=== PATIENT | female | born 1945 | race Caucasian/White ===

== ENCOUNTER → 2016-11-15 | Outpatient (CLI) | payer MEDICARE ==
--- NOTE | 2016-11-15 17:21 | US ---
EXAMINATION TYPE: US thyroid st tissue head/neck DATE OF EXAM: 11/15/2016 5:03 PM COMPARISON: NONE CLINICAL HISTORY: R94.6 abnormal thyroid results. GLAND SIZE: Right Lobe: 4.0 x 1.4 x 2.0 cm Overall Parenchyma: heterogenous Left Lobe: 4.3 x 1.3 x 2.0 cm Overall Parenchyma: heterogeneous Isthmus Thickness: 0.3 cm NODULES RIGHT: # of nodules measured on right: 0 LEFT: # of nodules measured on left: 0 ISTHMUS: # of nodules measured in the isthmus: 0 TECHNOLOGIST IMPRESSION: Multiple lymph nodes noted bilateral neck, largest on left = 2.1 x 0.6 x 1. 2cm. Heterogeneous thyroid gland with no distinct nodule noted IMPRESSION: No focal thyroid defect. There are a few cervical lymph nodes that probably normal.
== END | disposition home or self-care (01) ==
LOC: RADUSWWP 16:42
PROVIDERS: ATTEND Internal Medicine
DX: R94.6 Abnormal results of thyroid function studies (principal)
CPT/HCPCS: 76536

== ENCOUNTER → 2016-12-22 | Outpatient (CLI) | payer MEDICARE ==
--- NOTE | 2016-12-22 11:57 | FL ---
EXAMINATION TYPE: FL barium swallow DATE OF EXAM ORDERED: 12/22/2016 11:38 AM HISTORY: Dysphagia. COMPARISON: None. FINDINGS: The patient drank barium of these. There is tissue inflammation throughout the esophagus. This prominent posterior indentation upon upon the esophagus secondary to the cricopharyngeus muscle. The mucosal pattern throughout the esophagus was unremarkable. There is no evidence of hiatal hernia . There is moderate reflux. IMPRESSION: 1. PRESBYESOPHAGUS. 2. CRICOPHARYNGEAL ACHALASIA. 3. MODERATE REFLUX.
== END | disposition home or self-care (01) ==
LOC: RADFLWHC 10:56
PROVIDERS: ATTEND Otolaryngology
DX: K22.0 Achalasia of cardia (principal); K21.9 Gastro-esophageal reflux disease without esophagitis; K22.8 Other specified diseases of esophagus
CPT/HCPCS: 74220

== ENCOUNTER → 2017-01-01 | Outpatient (CLI) | payer MEDICARE ==
[2017-01-01 14:28] LABS: Non-African American GFR(MDRD) >60 (>60 ml/min/1.73 sqM)
--- NOTE | 2017-01-01 16:29 | MR ---
EXAMINATION TYPE: MR neck wo/w con DATE OF EXAM: 01/01/2017 3:33 PM COMPARISON: NONE HISTORY: Dysphagia, localized swelling mass CONTRAST: Performed utilizing 15 mL intravenous MultiHance gadolinium contrast. TECHNIQUE: Multiplanar, multiecho imaging on a 3.0 [place] magnet is performed through the neck. The cr aniovertebral junction is normal. The pituitary is normal. Findings: Subglottic airway appears unremarkable. There may be some subtle asymmetry of the vocal cord level wi th some flattening and midline shift of the left vocal cord compared to the right. Hypopharynx appear s unremarkable. No underlying vocal cord masses are identified on the pulse sequences. Paranasal sinuses within the [id number] are clear. Mastoid air cells are clear. Torus tubarius and fossa of Rosenmuller appear normal. Mental [facility] Program Specialist spaces are normal. Parotid glands are unremarkable. S ubmandibular glands are normal. No suspicious enlarged lymphadenopathy is evident. Scattered small ly mph nodes are within the bilateral neck chains. Postcontrast imaging appears unremarkable. Tongue appears normal. Mandible appears normal submental s pace is normal supraclavicular region is normal. IMPRESSIONS: 1. There may be some very subtle asymmetry of the vocal cord level slightly more medial placed left v ocal cord compared to the right. Underlying mass however is not identified. Direct visualization is r ecommended. 2. MRI of the neck appears otherwise unremarkable.
== END | disposition home or self-care (01) ==
LOC: RADMRIMAIN 13:35
PROVIDERS: ATTEND Otolaryngology
DX: R13.10 Dysphagia, unspecified (principal); R59.1 Generalized enlarged lymph nodes
CPT/HCPCS: 82565; 70543; 36415; A9577

== ENCOUNTER → 2017-01-18 | Outpatient (CLI) | payer MEDICARE | END | disposition home or self-care (01) | LOC: PTMAIN 12:50 | PROVIDERS: ATTEND Otolaryngology ==

== ENCOUNTER 2017-02-13 09:20 | Day surgery (SDC) | payer MEDICARE ==
[2017-02-09 13:46] VITALS: BMI 31.2
[~2017-02-13 09:20] MED LIST: LACTATED RINGERS 1,000 ML IV SCH
[2017-02-13 10:09] VITALS: TEMP 96.6
[2017-02-13] MEDS ORDERED: LIDOCAINE 1% INJ 10MG/ML (20 ML MDV) ONE (10:42)
[2017-02-13] MEDS ORDERED: PROPOFOL 10 MG/ML 20 ML VIAL IV ONE (10:42)
[2017-02-13 11:06] VITALS: BP 131/63; PULSE 88; RESP 16
--- NOTE | 2017-02-13 11:09 | P.PCN ---
Date of Procedure: 02/13/17 Preoperative Diagnosis: Postoperative Diagnosis: Procedure(s) Performed: Procedure: Esophagogastroduodenoscopy and biopsy. Preoperative diagnosis: Chronic gastroesophageal reflux and cough and more recent problems with progressive dysphagia. Postoperative diagnosis: 1. Small sliding hiatal hernia with no obvious esophagitis or complicated reflux disease. 2. Mild antral gastritis. Preparation and sedation: Was provided by anesthesia. Brief clinical history: The patient is a 71-year-old female who is referred for this evaluation because of chronic reflux symptoms. Had cough for at least the last 5 years. In addition, she has been having issues with dysphagia for the last 3 months that seems to be progressing. No alarm symptoms such as weight loss or bleeding. Procedure: With the patient on her left lateral decubitus position and after informed consent and adequate sedation, I passed the Olympus-GIF 160 video upper endoscope through the cricopharyngeus down the esophagus. GE junction was around 38 cm from the incisors and there was a small sliding hiatal hernia. The esophagus did not show any obvious erosions or ulcers. There were no strictures or Franco's esophagus. The endoscope was then passed into the stomach which was insufflated with air and inspected in detail including the retroflex view in the cardia. There was minimal mottling and erythema in the antrum but no ulcers or erosions. Pyloric channel, duodenal bulb, post bulbar area and descending duodenum appeared within normal limits. Because of her symptoms, I obtained biopsies from the duodenum, antrum and esophagus then the endoscope was withdrawn. No dilation was indicated. The patient tolerated the procedure well. Plan: The patient was reassured. Consideration can be given for further evaluation including evaluation for possible motility disorders, especially, if her symptoms persist or progress and if there is nutritional compromise. She will follow-up with you as planned and I'll keep you updated on her progress. Implants: Indications for Procedure: Operative Findings: Description of Procedure:
== END 2017-02-13 11:38 | disposition home or self-care (01) ==
LOC: ORWHC2ENDO 09:20
DX: R13.10 Dysphagia, unspecified (principal); K29.70 Gastritis, unspecified, without bleeding; K44.9 Diaphragmatic hernia without obstruction or gangrene; K21.9 Gastro-esophageal reflux disease without esophagitis; J44.9 Chronic obstructive pulmonary disease, unspecified; I10 Essential (primary) hypertension; Z88.3 Allergy status to other anti-infective agents; Z91.013 Allergy to seafood; Z79.82 Long term (current) use of aspirin; Z79.899 Other long term (current) drug therapy; R05 Cough
CPT/HCPCS: 88305; 88342; 43239; J2001; J2704

== ENCOUNTER → 2017-06-14 | Outpatient (CLI) | payer MEDICARE ==
--- NOTE | 2017-06-18 10:35 | MM ---
Reason for exam: screening (asymptomatic). Last mammogram was performed 1 year and 1 month ago. History: Patient is postmenopausal. Family history of breast cancer in paternal grandmother at age 67. Benign core biopsy of the right breast, 1980. Took hormonal contraceptives for 2 years beginning at age 21. Took estrogen for 3 months. Physical Findings: A clinical breast exam by your physician is recommended on an annual basis and results should be correlated with mammographic findings. MG Screening Mammo w CAD Bilateral CC and MLO view(s) were taken. Prior study comparison: May 05, 2016, bilateral MG 3d screening mammo w/cad. March 17, 2015, bilateral MG screening mammo w CAD. There are scattered fibroglandular densities. Stable benign calcifications. There is no discrete abnormality. No significant changes when compared with prior studies. ASSESSMENT: Benign, BI-RAD 2 RECOMMENDATION: Routine screening mammogram of both breasts in 1 year.
== END | disposition home or self-care (01) ==
LOC: RADMAMWWP 14:26
PROVIDERS: ATTEND Internal Medicine
DX: Z12.31 Encounter for screening mammogram for malignant neoplasm of breast (principal)

== ENCOUNTER → 2018-11-25 | Outpatient (CLI) | payer MEDICARE ==
--- NOTE | 2018-11-25 17:37 | BD ---
EXAMINATION TYPE: Axial Bone Density DATE OF EXAM: 11/25/2018 COMPARISON: 03/10/2014 CLINICAL HISTORY: 73-year-old female osteoporosis Height: 59.5 IN Weight: 162 LBS FRAX RISK QUESTIONS: Secondary Osteoporosis: 3. Menopause before 45: YES AGE 36 RISK FACTORS HISTORY OF: History of Wrist Fracture: YES ADAL When: AGE 63 Active: YES Postmenopausal woman: YES AGE 36 Take estrogen and/or progesterone medications: NOT NOW How long: TOOK CONTROL FOR 2 YEARS Lost more than 2 inches in height since high school: YES 09/11" MEDICATIONS: Additional Medications: VIT D, COUGH MED WITH HYDROCODONE, HEART MED, BLOOD PRESSURE MEDS, ASTHMA MED EXAM MEASUREMENTS: Bone mineral densitometry was performed using the [employer] System. Bone mineral density as measured about the Lumbar spine is: ----- L1-L4(G/cm2): 0.849 T Score Values are as follows: ----- L2: -3.3 ----- L3: -2.3 ----- L4: -3.0 ----- L1-L4: -2.8 Bone mineral density has: INCREASED 3.2% since study of: 03/10/1914 Bone mineral density about the R hip (g/cm2): 0.661 Bone mineral density about the L hip (g/cm2): 0.594 T Score values are as follows: -----R Neck: -2.7 -----L Neck: -3.2 -----R Total: -2.3 -----L Total: -2.3 Bone mineral density has: INCREASED 0.6% since study of: 03/10/2014 IMPRESSION: Osteoporosis (T Score less than -2.5). There is increased fracture risk and therapy is usually indicated based on age. Re-Screen 1-2 years. NOTE: T-SCORE=SD OF THE YOUNG ADULT MEAN.
--- NOTE | 2018-11-26 14:04 | MM ---
Reason for exam: screening (asymptomatic). Last mammogram was performed 1 year and 5 months ago. History: Patient is postmenopausal. Family history of breast cancer in paternal grandmother at age 67. Benign core biopsy of the right breast, 1980. Took hormonal contraceptives for 2 years beginning at age 21. Took estrogen for 3 months. Physical Findings: A clinical breast exam by your physician is recommended on an annual basis and results should be correlated with mammographic findings. MG 3D Screening Mammo W/Cad Bilateral CC and MLO view(s) were taken. Prior study comparison: June 14, 2017, bilateral MG screening mammo w CAD. May 05, 2016, bilateral MG 3d screening mammo w/cad. No significant changes when compared with prior studies. ASSESSMENT: Negative, BI-RAD 1 RECOMMENDATION: Routine screening mammogram of both breasts in 1 year.
== END | disposition home or self-care (01) ==
LOC: RADMAMWWP 15:31
PROVIDERS: ATTEND Internal Medicine
DX: M81.0 Age-related osteoporosis without current pathological fracture (principal)
CPT/HCPCS: 77063; 77067; 77080

== ENCOUNTER → 2019-02-20 | Outpatient (CLI) | payer MEDICARE ==
[~2019-02-20] MED LIST changes: +DENOSUMAB 60 MG/ML 1 ML SYRINGE SQ NR; +DENOSUMAB 60 MG/ML 1 ML SYRINGE SQ ONE; -LACTATED RINGERS 1,000 ML IV SCH
[2019-02-20 13:59] VITALS: BP 123/62; PULSE 81; RESP 16; TEMP 97.8
== END | disposition home or self-care (01) ==
LOC: PROCWHC3 13:33
PROVIDERS: ATTEND Internal Medicine
DX: M81.0 Age-related osteoporosis without current pathological fracture (principal)
CPT/HCPCS: 96372

== ENCOUNTER → 2019-08-26 | Outpatient (CLI) | payer MEDICARE ==
--- NOTE | 2019-08-26 14:46 | XR ---
EXAMINATION TYPE: XR ankle complete RT DATE OF EXAM: 08/26/2019 CLINICAL HISTORY: Right ankle pain after fall in July. TECHNIQUE: Frontal, lateral and oblique images of the right ankle are obtained. COMPARISON: None. FINDINGS: There is no acute fracture/dislocation evident in the right ankle. The ankle mortise appe ars within normal limits. Very small Achilles and plantar enthesophytes. The overlying soft tissue a ppears unremarkable. IMPRESSION: There is no acute fracture or dislocation in the right ankle.
--- NOTE | 2019-08-26 15:01 | XR ---
Right hip HISTORY: Trauma several weeks prior, pain in right hip 2 views of the right hip correlated to pelvis dated 11/15/2010 Bone mineralization is mildly reduced. Joint spaces and alignment are maintained. IMPRESSION: No fracture or dislocation.
== END | disposition home or self-care (01) ==
LOC: RADXRMAIN 14:13
PROVIDERS: ATTEND Internal Medicine
DX: M25.551 Pain in right hip (principal); M25.571 Pain in right ankle and joints of right foot
CPT/HCPCS: 73502

== ENCOUNTER → 2020-08-23 | Outpatient (CLI) | payer MEDICARE ==
[~2020-08-23] MED LIST changes: -DENOSUMAB 60 MG/ML 1 ML SYRINGE SQ NR
[2020-08-23 14:08] VITALS: BP 156/79; PULSE 63; RESP 16; TEMP 98.2
== END | disposition home or self-care (01) ==
LOC: PROCWHC3 13:48
PROVIDERS: ATTEND Internal Medicine
DX: M81.0 Age-related osteoporosis without current pathological fracture (principal)
CPT/HCPCS: 96372; J0897

== ENCOUNTER → 2020-10-18 | Outpatient (CLI) | payer MEDICARE ==
--- NOTE | 2020-10-18 15:22 | XR ---
EXAMINATION TYPE: XR chest 2V DATE OF EXAM: 10/18/2020 COMPARISON: 10/29/2013 HISTORY: Shortness of breath TECHNIQUE: Frontal and lateral views of the chest are obtained. FINDINGS: Scattered senescent parenchymal changes noted. Hyperinflation compatible with COPD. Strandy basilar densities may reflect parenchymal scar, atelectasis or developing infiltrate. Correla te clinically. Heart size is stable. Mediastinal structures are stable and grossly unremarkable. No evidence for hilar prominence. Degenerative changes dorsal spine. IMPRESSION: 1. Strandy basilar densities may reflect parenchymal scar, atelectasis or developing infiltrate. Kendall elate clinically.
== END | disposition home or self-care (01) ==
LOC: RADXRMAIN 13:58
PROVIDERS: ATTEND Internal Medicine
DX: J98.4 Other disorders of lung (principal)
CPT/HCPCS: 71046

== ENCOUNTER → 2020-12-30 | Outpatient (CLI) | payer MEDICARE ==
--- NOTE | 2021-01-03 10:37 | MM ---
Reason for exam: screening (asymptomatic). Last mammogram was performed 2 years and 1 month ago. History: Patient is postmenopausal. Family history of breast cancer in paternal grandmother at age 67. Benign core biopsy of the right breast, 1980. Took hormonal contraceptives for 2 years beginning at age 21. Took estrogen for 3 months. Physical Findings: A clinical breast exam by your physician is recommended on an annual basis and results should be correlated with mammographic findings. MG 3D Screening Mammo W/Cad Bilateral CC and MLO view(s) were taken. Prior study comparison: November 25, 2018, bilateral MG 3d screening mammo w/cad. June 14, 2017, bilateral MG screening mammo w CAD. There are scattered fibroglandular densities. Areas of asymmetric density are unchanged. No significant changes when compared with prior studies. ASSESSMENT: Negative, BI-RAD 1 RECOMMENDATION: Routine screening mammogram of both breasts in 1 year.
== END | disposition home or self-care (01) ==
LOC: RADMAMWWP 14:57
PROVIDERS: ATTEND Internal Medicine
DX: Z12.31 Encounter for screening mammogram for malignant neoplasm of breast (principal)
CPT/HCPCS: 77063; 77067

== ENCOUNTER 2022-01-23 13:57 | Emergency (ER) | payer MEDICARE ==
[2022-01-23 15:23] VITALS: TEMP 97.9
--- NOTE | 2022-01-23 15:45 | XR ---
EXAMINATION TYPE: XR wrist complete RT DATE OF EXAM: 01/23/2022 CLINICAL HISTORY: Recent fall injury with pain TECHNIQUE: Frontal, lateral and oblique images of the right wrist are obtained. 4 view scaphoid vie w is performed. COMPARISON: None FINDINGS: There is no acute fracture/dislocation evident in the right wrist. Advanced degenerative c hanges base of first metacarpal with marked narrowing and subchondral cystic change along with periph eral bony formation is present. The overlying soft tissue appears unremarkable. IMPRESSION: There is no acute fracture or dislocation in the right wrist.
[2022-01-23] MEDS ORDERED: ACETAMINOPHEN TAB 325 MG TAB PO STA (17:13)
--- NOTE | 2022-01-23 17:14 | ED ---
General Adult HPI - General Chief complaint: Extremity Injury, Upper Stated complaint: Fall, Right Wrist Injury Time Seen by Provider: 01/23/22 16:47 Source: patient Mode of arrival: ambulatory Limitations: no limitations - History of Present Illness Initial comments: Patient is a 76-year-old female presenting with chief complaint of right wrist pain. Patient states on Sunday she fell onto an outstretched hand after losing her balance on uneven ground. She did not hit her head and denies the use of blood thinners. She has been taking Tylenol for pain control. States that she has broken the right wrist on 2 previous occasions. She states that it has become increasingly painful and swollen. She denies any weakness, loss of range of motion, numbness, tingling warmth, fever, chills, chest pain, shortness of breath, nausea, vomiting, head injury. - Related Data Home Medications Medication Instructions Recorded Confirmed Aspirin 81 mg PO DAILY 06/07/15 08/23/20 Budesonide-Formot 160-4.5 Mcg 1 puff INHALATION BID 06/07/15 08/23/20 [Symbicort 160-4.5 Mcg Inhaler] Fluticasone Nasal [place] [Flonase 1 spray EA NOSTRIL BID 06/07/15 08/23/20 Nasal [place]] Hydrocodone/Chlorphen P-Stirex 5 ml PO Q12HR 06/07/15 08/23/20 [Hydrocodone-Chlorphen ER Susp] Loratadine [Claritin] 5 mg PO DAILY 06/07/15 08/23/20 Montelukast [Singulair] 10 mg PO HS 06/07/15 08/23/20 Multivitamins, Thera [Theragran] 1 each PO DAILY 06/07/15 08/23/20 amLODIPine [Norvasc] 5 mg PO DAILY 06/07/15 08/23/20 Allergies Allergy/AdvReac Type Severity Reaction Status Date / Time iodine Allergy burning Verified 01/23/22 15:21 sensation shellfish derived [Shellfish] Allergy Vomiting Verified 01/23/22 15:21 Review of Systems ROS Statement: Those systems with pertinent positive or pertinent negative responses have been documented in the HPI. ROS Other: All systems not noted in ROS Statement are negative. Past Medical History Past Medical History: Blood Disorder, COPD, GERD/Reflux, Hypertension, Osteoarthritis (OA) Additional Past Medical History / Comment(s): Diff swallowing, hiatal hernia, hx bowel obstruction("they can't get scope all the way up with colonoscopy") Dx. with thalassemia when 21 and was hospitalized for pneumonia, Hx. of SOB, Hx. of blood clots in both arms. History of Any Multi-Drug Resistant Organisms: None Reported Past Surgical History: Appendectomy, Bowel Resection, Cholecystectomy, Hysterectomy Additional Past Surgical History / Comment(s): Had a trach for pneumonia at age 21. Past Anesthesia/Blood Transfusion Reactions: No Reported Reaction Additional Past Anesthesia/Blood Transfusion Reaction / Comment(s): "i get very angry after" Past Psychological History: No Psychological Hx Reported Smoking Status: Former smoker - Past Family History Father Family Medical History: Blood Disorder Additional Family Medical History / Comment(s): thalassemia Brother(s) Family Medical History: Cancer Mother Family Medical History: Cancer Sister(s) Family Medical History: Blood Disorder Additional Family Medical History / Comment(s): thalassemia General Exam Limitations: no limitations General appearance: alert, in no apparent distress Head exam: Present: atraumatic, normocephalic, normal inspection Eye exam: Present: normal appearance, EOMI. Absent: scleral icterus Neck exam: Present: normal inspection Respiratory exam: Present: normal lung sounds bilaterally. Absent: respiratory distress, wheezes, rales, rhonchi, stridor Cardiovascular Exam: Present: regular rate, normal rhythm, normal heart sounds. Absent: systolic murmur, diastolic murmur, rubs, gallop, clicks Right Hand Wrist exam: Present: full ROM, tenderness, swelling Neurological exam: Present: alert, oriented X3, CN II-XII intact Psychiatric exam: Present: normal affect, normal mood Skin exam: Present: warm, dry, intact, normal color. Absent: rash Course Vital Signs 01/23/22 01/23/22 15:21 17:32 Temperature 97.9 F Pulse Rate 59 L 75 Respiratory 16 18 Rate Blood Pressure 121/90 125/79 O2 Sat by Pulse 96 99 Oximetry Medical Decision Making - Medical Decision Making Patient is a 76-year-old female presenting with chief complaint of right wrist pain. Pain began on Sunday after falling onto an outstretched hand. Patient states that she has broken the wrist 2 times before. On examination there is full range of motion. There is some swelling near the distal ulnar aspect and tenderness on palpation. X-ray shows no acute fracture or dislocation. Educated the patient on the findings, she appears stable for discharge with ou tpatient follow-up at this time. Educated on supportive treatment with acetaminophen and icing. Follow-up with your PCP this week. Report back to ER if any worsening symptoms. Educated on return parameters alarm symptoms. Answered all questions. Patient conveyed verbal understanding and agreed to the plan. Disposition Clinical Impression: Wrist pain Disposition: HOME SELF-CARE Condition: Good Instructions (If sedation given, give patient instructions): Wrist Injury (ED) Additional Instructions: Utilize Tylenol and ice as needed for pain control. Follow-up with your PCP this week. Report back to ER if any worsening symptoms. Is patient prescribed a controlled substance at d/c from ED?: No Referrals: Prasanth Gallardo MD [Primary Care Provider] - 1-2 days Time of Disposition: 17:13
[2022-01-23 17:33] VITALS: BP 125/79; PULSE 75; RESP 18
== END 2022-01-23 17:33 | disposition home or self-care (01) ==
LOC: EC 13:57
DX: M25.531 Pain in right wrist (principal); I10 Essential (primary) hypertension; M19.90 Unspecified osteoarthritis, unspecified site; Z87.891 Personal history of nicotine dependence; Z91.013 Allergy to seafood; Z88.8 Allergy status to other drugs, medicaments and biological substances; Z79.899 Other long term (current) drug therapy; Z79.82 Long term (current) use of aspirin; W19.XXXA Unspecified fall, initial encounter
CPT/HCPCS: 99283

== ENCOUNTER → 2022-05-26 | Outpatient (CLI) | payer MEDICARE ==
[~2022-05-26] MED LIST changes: +DENOSUMAB 60 MG/ML 1 ML SYRINGE SQ NR; -DENOSUMAB 60 MG/ML 1 ML SYRINGE SQ ONE
[2022-05-26 12:42] VITALS: BP 127/74; PULSE 66; RESP 16; TEMP 98.4
== END ==
LOC: PROCWHC3 12:22
PROVIDERS: ATTEND Internal Medicine
DX: M81.0 Age-related osteoporosis without current pathological fracture (principal); Z91.041 Radiographic dye allergy status; Z91.013 Allergy to seafood; Z87.891 Personal history of nicotine dependence
CPT/HCPCS: 96372; J0897

== ENCOUNTER → 2023-03-01 | Outpatient (CLI) | payer MEDICARE ==
--- NOTE | 2023-03-01 20:02 | BD ---
EXAMINATION TYPE: Axial Bone Density DATE OF EXAM: 03/01/2023 CLINICAL HISTORY: 77 years old Female. ICD-10 CODE: Z12.31, N95.1 Height: 60.25" Weight: 166.7 lbs FRAX RISK QUESTIONS: Alcohol (3 or more units per day): No Family History (Parent hip fracture): Yes, father Glucocorticoids (More than 3mos): No (Ex: prednisone, prednisolone, methylprednisolone, dexamethasone, and hydrocortisone). History of Fracture in Adulthood: yes, right forearm Secondary Osteoporosis: 1. Type 1 Diabetes: No 2. Hyperthyroidism: No 3. Menopause before 45: No 4. Malnutrition: No 5. Chronic liver disease: No Rheumatoid Arthritis: No Current Tobacco Use: No RISK FACTORS HISTORY OF: Hip Fracture (Right/Left): No Spine Fracture: No History of Wrist Fracture: No Surgery to Spine/Hip(right/left)/Wrist (right/left): No Family History of Osteoporosis: No Active: Yes Diet low in dairy products/other sources of calcium: Yes Postmenopausal woman: Yes Lost more than 2 inches in height since high school: Patient states yes Frequent falls: No Poor Health: No Hyperparathyroidism: No Adrenal Insufficiency: No MEDICATIONS: Prednisone or other steroids: No Thyroid Medications: No Osteoporosis Medications: No Additional Medications: Tussinex, blood pressure, Albuterol, Hydrocodone, aspirin, amlodipine, lorata dine, pantoprazole, breo, calcium & vitamin D3, multivitamin, calcium injection every 6 months for a few years Additional History: None EXAM MEASUREMENTS: Bone mineral densitometry was performed using the [employer] System. Bone mineral density as measured about the Lumbar spine is: ----- L1-L4(G/cm2): 0.915 T Score Values are as follows: ----- L1: -2.7 ----- L2: -3.2 ----- L3: -1.7 ----- L4: -1.6 ----- L1-L4: -2.2 Z Score Values are as follows: ----- L1: -1.3 ----- L2: -1.7 ----- L3: -0.3 ----- L4: -0.2 ----- L1-L4: -0.8 Bone mineral density has: increased 7.8% since study of: 11/25/2018 Bone mineral density about the R hip (g/cm2): 0.703 Bone mineral density about the L hip (g/cm2): 0.730 T Score values are as follows: -----R Neck: -2.9 -----L Neck: -3.2 -----R Total: -2.4 -----L Total: -2.2 Z Score values are as follows: -----R Neck: -1.1 -----L Neck: -1.4 -----R Total: -0.9 -----L Total: -0.6 Bone mineral density has: decreased -0.1% since study of: 11/25/2018 FRAX%s: The graph provided illustrates a 57.4% chance for a major osteoporotic fx and a 44.6% chance for the hips probability for fx in 10 years time. IMPRESSION: Osteoporosis (T Score less than -2.5). There is increased fracture risk and therapy is usually indicated based on age. Re-Screen 1-2 years. NOTE: T-SCORE=SD OF THE YOUNG ADULT MEAN.
--- NOTE | 2023-03-02 20:25 | MM ---
Reason for Exam: Screening (asymptomatic). Last mammogram was performed 2 year(s) and 2 month(s) ago. Patient History: Menarche at age 12. First Full-Term at age 24. Left ovary removed at age 38. Hysterectomy at age 35. Postmenopausal. Estrogen for 3 months. Hormonal Contraceptives, starting at age 21 for 2 years. 1981, Benign Core Biopsy on the right side. Paternal grandmother had breast cancer, age 67. Risk Values: Joanna 5 year model risk: 2.0%. NCI Lifetime model risk: 4.2%. Prior Study Comparison: 06/14/2017 Bilateral Screening Mammogram, [facility]. 11/25/2018 Bilateral Screening Mammogram, [facility]. 12/30/2020 Bilateral Screening Mammogram, [facility]. Tissue Density: There are scattered fibroglandular densities. Findings: Analyzed By CAD. Asymmetric density central posterior right MLO view remains unchanged. There is no suspicious group of microcalcifications or new suspicious mass in either breast. Overall Assessment: Benign, BI-RAD 2 Management: Screening Mammogram of both breasts in 1 year. . Patient should continue monthly self-breast exams. A clinical breast exam by your physician is recommended on an annual basis. This exam should not preclude additional follow-up of suspicious palpable abnormalities. Note on Joanna scores and lifetime risk: 1. A Joanna score greater than 3% is considered moderate risk. If this is the case, consider specialist referral to assess eligibility for a risk reducing agent. 2. If overall lifetime risk for the development of breast cancer is 20% or higher, the patient may qualify for future screening with alternating mammogram and breast MRI. Electronically signed and approved by: Cristina Simms M.D. Radiologist
== END | disposition home or self-care (01) ==
LOC: RADBDWWP 15:57
PROVIDERS: ATTEND Internal Medicine
DX: Z12.31 Encounter for screening mammogram for malignant neoplasm of breast (principal); M81.0 Age-related osteoporosis without current pathological fracture; M85.89 Other specified disorders of bone density and structure, multiple sites; Z78.0 Asymptomatic menopausal state; Z80.3 Family history of malignant neoplasm of breast
CPT/HCPCS: 77063; 77067; 77080

== ENCOUNTER → 2023-10-16 | Outpatient (CLI) | payer MEDICARE ==
--- NOTE | 2023-10-16 09:51 | XR ---
EXAMINATION TYPE: XR abdomen 1V DATE OF EXAM: 10/16/2023 COMPARISON: NONE HISTORY: Pain TECHNIQUE: Single supine KUB image of the abdomen is obtained FINDINGS: Small bowel demonstrates no evidence for dilatation or air fluid levels. Gas and fecal material is seen in non-distended colon. No convincing evidence for pneumoperitoneum. No unusual calcifications. The lung bases are clear. The osseous structures are intact. IMPRESSION: 1. Overall nonobstructive bowel gas pattern.
== END | disposition home or self-care (01) ==
LOC: RADFLMAIN 08:22
PROVIDERS: ATTEND Surgery
DX: Z53.09 Procedure and treatment not carried out because of other contraindication (principal); R14.0 Abdominal distension (gaseous)
CPT/HCPCS: 74018

== ENCOUNTER → 2024-07-23 | Outpatient (CLI) | payer MEDICARE ==
--- NOTE | 2024-07-23 22:30 | XR ---
EXAMINATION TYPE: XR ankle complete RT DATE OF EXAM: 07/23/2024 2:27 PM COMPARISON: None. CLINICAL INDICATION: Female, 78 years old with history of FALL,INJURY, M25.571 PAIN IN RIGHT ANKLE AN D JOINT, TECHNIQUE: 3 view(s) obtained. FINDINGS: Ankle mortise is intact. Tiny plantar calcaneal heel spur is present. No acute fractures or dislocations evident. Soft tissues are normal. Follow up exams can be performed 7-10 days from acute trauma for continued pain. IMPRESSION: 1. No acute osseous abnormality right ankle [facility] Kaylene Cohen, , 07/23/2024 10:28 PM
== END | disposition home or self-care (01) ==
LOC: RADXRMAIN 14:06
PROVIDERS: ATTEND Internal Medicine
DX: M25.571 Pain in right ankle and joints of right foot (principal)

== ENCOUNTER → 2024-07-30 | Outpatient (CLI) | payer MEDICARE ==
--- NOTE | 2024-08-01 09:45 | MM ---
Reason for Exam: Screening (asymptomatic). Last mammogram was performed 1 year(s) and 5 month(s) ago. Patient History: Menarche at age 12. First Full-Term at age 24. Left ovary removed at age 38. Hysterectomy at age 35. Postmenopausal. Estrogen for 3 months. Hormonal Contraceptives, starting at age 21 for 2 years. 1981, Benign Core Biopsy on the right side. Paternal grandmother had breast cancer, age 67. Risk Values: Joanna 5 year model risk: 2.0%. NCI Lifetime model risk: 3.9%. Prior Study Comparison: 11/25/2018 Bilateral Screening Mammogram, [facility]. 12/30/2020 Bilateral Screening Mammogram, [facility]. 03/01/2023 Bilateral MG 3D screening mammo w/cad, [facility]. Tissue Density: The breasts are almost entirely fatty. Findings: Analyzed By CAD. Right breast: There is no suspicious group of microcalcifications or new suspicious mass. Left breast: There is no suspicious group of microcalcifications or new suspicious mass. Overall Assessment: Negative, BI-RAD 1 Management: Screening Mammogram of both breasts in [address] [facility] will attempt to contact patient to return for supplemental views and ultrasound if indicated. Patient should continue monthly self-breast exams. A clinical breast exam by your physician is recommended on an annual basis. This exam should not preclude additional follow-up of suspicious palpable abnormalities. Note on Joanna scores and lifetime risk: 1. A Joanna score greater than 3% is considered moderate risk. If this is the case, consider specialist referral to assess eligibility for a risk reducing agent. 2. If overall lifetime risk for the development of breast cancer is 20% or higher, the patient may qualify for future screening with alternating mammogram and breast MRI. [facility], , 08/01/2024 9:42 AM. Electronically signed and approved by: Antwon Russell DO
== END | disposition home or self-care (01) ==
LOC: RADMAMWWP 15:13
PROVIDERS: ATTEND Internal Medicine
DX: Z12.31 Encounter for screening mammogram for malignant neoplasm of breast (principal); Z78.0 Asymptomatic menopausal state; Z80.3 Family history of malignant neoplasm of breast; Z90.722 Acquired absence of ovaries, bilateral; R92.313 Mammographic fatty tissue density, bilateral breasts
CPT/HCPCS: 77063; 77067